=== PATIENT | female | born 1980 | race Asian ===

== ENCOUNTER 2019-08-22 09:58 | Emergency (ER) | payer SELFPAY ==
[~2019-08-22] VITALS: Ht 154.9 cm; Wt 51.3 kg
[2019-08-22 10:03] VITALS: BP 91/57; Ht 154.9 cm; Wt 51.3 kg
== END 2019-08-22 10:31 | disposition left against medical advice (07) ==
LOC: ED 09:58
DX: O26.892 Other specified pregnancy related conditions, second trimester (principal); O21.8 Other vomiting complicating pregnancy; R10.816 Epigastric abdominal tenderness; R19.7 Diarrhea, unspecified; Z3A.22 22 weeks gestation of pregnancy; Z98.890 Other specified postprocedural states

== ENCOUNTER 2020-12-01 08:37 | Emergency (ER) | payer BC ==
[~2020-12-01] VITALS: Ht 152.4 cm; Wt 43.5 kg
[2020-12-01 08:39] VITALS: Ht 152.4 cm; Wt 43.5 kg
[2020-12-01 10:55] VITALS: BP 96/60
== END 2020-12-01 11:11 | disposition home or self-care (01) ==
LOC: ED 08:37
DX: T78.40XA Allergy, unspecified, initial encounter (principal); H53.8 Other visual disturbances; R06.02 Shortness of breath; Z98.890 Other specified postprocedural states; X58.XXXA Exposure to other specified factors, initial encounter
CPT/HCPCS: J7040